=== PATIENT | male | born 1970 | race Caucasian/White ===

== ENCOUNTER 2024-12-16 01:12 | Emergency (ER) | payer OTHER, SELFPAY ==
[2024-12-16 01:33] VITALS: BP 116/73; PULSE 92; TEMP 37.5; O2SAT 97; BMI 36.5
[2024-12-16 01:41] VITALS: O2SAT 97
--- NOTE | 2024-12-16 01:42 | ED_ITS ---
HPI - URI/Sore Throat General Chief Complaint: Upper Respiratory Infection Stated Complaint: FLU LIKE SYMPTOMS Time Seen by Provider: 12/16/24 01:26 Limitations: no limitations History of Present Illness HPI Narrative: 54-year-old male presents to the emergency department for a chief complaint of cough and congestion. He has been sick for about 24 hours. His is ill as well and is being seen. He has not had a fever or productive cough. Related Data Home Medications ?Medication ?Instructions ?Recorded ?Confirmed olopatadine 0.1 % eye drops 1 drp ophthalmic (eye) DAILY PRN 12/16/24 12/16/24 allergy symptoms semaglutide (weight loss) 0.25 0.25 mg subcut Q7D 12/16/24 12/16/24 mg/0.5 mL subcutaneous pen injector (Wegovy) semaglutide (weight loss) 1 mg/0.5 1 mg subcut Q7D 12/16/24 12/16/24 mL subcutaneous pen injector (Wegovy) Allergies Allergy/AdvReac Type Severity Reaction Status Date / Time No Known Drug Allergies Allergy Verified 12/16/24 01:37 Review of Systems ROS Narrative A ten point review of systems is negative except as noted above. PFSH PFSH Social History Little interest or pleasure in doing things: not at all Feeling down, depressed, or hopeless: not at all Exam Narrative Exam Narrative: Nurses note and vital signs reviewed and patient is not hypoxic. General: The patient appears well and in no apparent distress. Patient is resting comfortably on cart. Skin: Warm, dry, no pallor noted. There is no rash noted. Head: Normocephalic, atraumatic Eye: Normal conjunctiva, no drainage Ears, Nose, Mouth, and Throat: oral mucosa is moist. Nares patent. Cardiovascular: Regular Rate and Rhythm Respiratory: Patient is in no distress, no accessory muscle use, lungs are clear to auscultation, no wheezing, rales or rhonchi. Good air movement. Back: non-tender GI: Soft and nontender Musculoskeletal: The patient has no evidence of calf tenderness, no pitting edema, symmetrical pulses noted bilaterally Neurological: A&O, normal speech Psychiatric: Cooperative Constitutional Vital Signs, click to edit/add: Last Vital Signs Temp 99.5 F 12/16/24 01:33 Pulse 92 H 12/16/24 01:33 Resp 16 12/16/24 01:43 BP 116/73 12/16/24 01:33 Pulse Ox 97 12/16/24 01:41 O2 Del Method Room Air 12/16/24 01:41 Course Vital Signs Vital signs: Vital Signs Temperature 99.5 F 12/16/24 01:33 Pulse Rate 92 H 12/16/24 01:33 Respiratory Rate 16 12/16/24 01:33 Blood Pressure 116/73 12/16/24 01:33 Pulse Oximetry 97 12/16/24 01:33 Oxygen Delivery Method Room Air 12/16/24 01:33 Temperature 99.5 F 12/16/24 01:33 Pulse Rate 92 H 12/16/24 01:33 Respiratory Rate 16 12/16/24 01:43 Blood Pressure 116/73 12/16/24 01:33 Pulse Oximetry 97 12/16/24 01:41 Oxygen Delivery Method Room Air 12/16/24 01:41 MDM - URI/Sore Throat MDM Narrative Medical decision making narrative: COVID and influenza test are negative. My clinical impression is that he has a viral URI. There is no indication for an antibiotic. Treatment diagnosis and f ollow-up were discussed with the patient. Differential Diagnosis Differential diagnosis: Likely upper respiratory infection, viral infection, influenza and other (COVID) Lab Data Attestation: I reviewed the patient's lab results. Labs: Lab Results 12/16/24 Range/Units 01:50 Influenza Type A Ag Negative Influenza Type B Ag Negative SARS-CoV-2 Ag (CV2AG) Negative (NEGATIVE) Discharge Plan Discharge Chief Complaint: Upper Respiratory Infection Clinical Impression: Viral URI Patient Disposition: Home, Self-Care Time of Disposition Decision: 02:17 Condition: Good Mode of Transportation: Private Vehicle Prescriptions / Home Meds: No Action olopatadine 0.1 % drops 1 drp OPHTHALMIC (EYE) DAILY PRN (Reason: allergy symptoms) Wegovy 0.25 mg/0.5 mL pen injector 0.25 mg SUBCUT Q7D Wegovy 1 mg/0.5 mL pen injector 1 mg SUBCUT Q7D Print Language: Syriac Instructions: Upper Respiratory Infection (ED) Referrals: Weston Jenkins DO [Primary Care Provider] - 1 week
[2024-12-16 02:10] LABS: Influenza Virus A Antigen Negative; Influenza Virus B Antigen Negative; Internal Control Within Normal Limits; SARS-CoV-2 Ag NEGATIVE (NEGATIVE)
== END 2024-12-16 02:37 | disposition home or self-care (01) ==
PROVIDERS: Emergency Provider Emergency Medicine; PCP Family Medicine
DX: J06.9 Acute upper respiratory infection, unspecified (principal); R05.9 Cough, unspecified
CPT/HCPCS: 87804; 87811; 99284